=== PATIENT | male | born 1975 | race African-American/Black ===

== ENCOUNTER 2016-12-25 15:49 | Observation (INO) | payer OTHER ==
--- NOTE | 2016-12-25 16:10 | PDOC ---
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 Similar between 12:30 and 1 PM he had the sudden onset of palpitations, feeling like his ear is clogged, and feeling dizzy and lightheaded He went outside to walk around to get some air and then he states that it a little while his heart home down He went to the office, and his blood pressure was 135/99, and his heart rate is 80 at that point He continued to not quite feel right, But then one hour prior to presentation he developed some tingling in his left foot, and his face felt hot bilaterally He again went out and walked around and calm down He did not have palpitations at this time, and he did not have any chest pain or headache He was starting to feel better, but was told to come to the ER to get himself checked out He denies any other focal neurologic complaints He denies any difficulty walking He denies any syncope He denies any recent change in his Synthroid dose He denies any recent intercurrent illnesses He denies any other complaints at this time, and the remainder of the review of systems is negative NIH Stroke Scale - Initial Evaluation Level of consciousness: Alert Ask patient the month and their age: Answers both correctly Ask patient to open & close eyes; make fist and let go: Obeys both correctly Best gaze (horizontal eye movement): Normal Visual field testing: No visual field loss Facial paresis (Show teeth/raise eyebrows/close eyes tight): Normal symmetrical movement Motor Function: Left Arm: Normal Motor Function: Right Arm: Normal (extends arm 90 (or 45) degrees for 10 seconds without drift Motor Function: Left Leg: Normal (extends leg 30 degrees for 5 seconds without drift) Motor Function: Right Leg: Normal (extends leg 30 degrees for 5 seconds without drift) Limb Ataxia: No ataxia Sensory(Use pinprick test arms,legs,trunk,face/side to side): Normal Best language (Describe picture, name items, read sentences): No Aphasia Dysarthria (read several words): Normal articulation Extinction and Inattention: No abnormality - Total Score NIH Stroke Scale Score: 0 Past History - Past Medical History Allergies/Adverse Reactions: Allergies Allergy/AdvReac Type Severity Reaction Status Date / Time Shellfish Allergy hives/swell Verified 12/25/16 15:50 ing Home Medications: Ambulatory Orders Levothyroxine [Synthroid -] 112 mcg PO DAILY 06/25/14 Thyroid Disease: Yes - Immunization History Td Vaccination: Yes TDAP Vaccination: Yes Immunization Up to Date: Yes - Psycho/Social/Smoking Cessation Hx Anxiety: No Suicidal Ideation: No Smoking Status: No Smoking History: Unknown if ever smoked Have you smoked in the past 12 months: No Number of Cigarettes Smoked Daily: 0 Hx Alcohol Use: Yes Drug/Substance Use Hx: No Substance Use Type: None Review of Systems - Review of Systems Able to Perform ROS?: Yes Comments:: 12/25/16 16:13 12 point review of systems is as per history of present illness and otherwise negative *Physical Exam - Physical Exam Comments: 12/25/16 16:14 Physical exam Last Vital Signs Temp Pulse Resp BP Pulse Ox 98.1 F 78 20 142/88 100 12/25/16 15:50 12/25/16 15:50 12/25/16 15:50 12/25/16 15:50 12/25/16 15:50 GENERAL: The patient is awake, alert, and fully oriented, and in no apparent distress. HEAD: Normal with no signs of trauma. EYES: Pupils equal, round and reactive to light, extraocular movements intact, sclera anicteric, conjunctiva are normal. ENT: oropharynx clear without exudates. Moist mucous membranes. NECK: Normal range of motion, supple LUNGS: Breath sounds equal, clear to auscultation bilaterally. No wheezes, and no crackles. HEART: Regular rate and rhythm, normal S1 and S2 without murmur, rub or gallop. ABDOMEN: Soft, nontender, normoactive bowel sounds. No guarding, no rebound. No masses appreciated. EXTREMITIES: Normal range of motion, no edema. No clubbing or cyanosis. No cords, erythema, or tenderness. NEURO: Mental status: The patient is oriented x3. Cranial nerves: Cranial nerves II through XII are intact Motor: The upper extremities are 5 over 5 in all muscle groups. The lower extremities are 5 over 5 in all muscle groups. Sensation: Sensation is intact to light touch throughout. Cerebellar: Poqedd-dzxoch-aele is normal in both upper extremities. Heel-knee- acosta is normal in both lower extremities. Reflexes: 2+ and symmetric in the upper and lower extremities. Gait: Normal. Heel and toe walking are normal. Tandem gait is normal. NIH stroke scale 0 at this time NEUROLOGICAL: Cranial nerves II through XII grossly intact. Normal speech, normal gait. PSYCH: Normal mood, normal affect. SKIN: Warm, Dry, normal turgor, no rashes or lesions noted. ED Treatment Course - LABORATORY CBC & Chemistry Diagram: 12/25/16 16:12 12/25/16 16:12 - RADIOLOGY Radiology Studies Ordered: Category Date Time Status HEAD CT WITHOUT CONTRAST [CT] Stat CT Scan 12/25/16 16:01 Ordered CHEST X-RAY PORTABLE* [RAD] Stat Radiology 12/25/16 16:02 Ordered Medical Decision Making - Medical Decision Making 12/25/16 16:14 During triage, there was a question of a left facial droop I came into the room immediately when called by the nurse, and did a complete NIH stroke scale There is no facial droop at this time, and the NIH stroke scale is 0 I did speak to neurology at 4 PM-Dr. Richter-will get a CT scan of the head With a completely nonfocal neurologic examination NIH stroke scale of 0 at this time, patient is not a candidate Patient states that he's feeling back to himself right now EKG Normal sinus rhythm 71, normal axis Normal AV and IV conduction time Normal QTC Normal EKG 12/25/16 17:11 CT head without-NAD Chest x-ray-NAD Laboratory Results - last 24 hr 12/25/16 12/25/16 12/25/16 16:12 16:12 16:12 WBC 5.1 RBC 5.89 H Hgb 15.7 Hct 47.8 MCV 81.1 MCHC 33.0 RDW 14.5 Plt Count 226 MPV 9.4 Sodium 138 Potassium 4.5 Chloride 105 Carbon Dioxide 26 Anion Gap 7 L BUN 14 Creatinine 1.3 Creat Clearance w eGFR > 60 Random Glucose 85 Calcium 9.1 Magnesium 1.9 Total Bilirubin 0.7 AST 22 ALT 30 Alkaline Phosphatase 45 Creatine Kinase 270 H CK-MB (CK-2) CK-MB (CK-2) Rel Index 0.9 Troponin I < 0.03 L Total Protein 7.0 Albumin 4.0 12/25/16 16:15 WBC RBC Hgb Hct MCV MCHC RDW Plt Count MPV Sodium Potassium Chloride Carbon Dioxide Anion Gap BUN Creatinine Creat Clearance w eGFR Random Glucose Calcium Magnesium Total Bilirubin AST ALT Alkaline Phosphatase Creatine Kinase CK-MB (CK-2) 2.4 CK-MB (CK-2) Rel Index Troponin I Total Protein Albumin Repeat neurologic exam nonfocal 12/25/16 17:22 Case discussed with neurologist again-Dr. Richter Possible TIA, unclear if the palpitations represented atrial fibrillation which may have led to the TIA Patient remains in sinus rhythm, with an NIH stroke score of 0 at this time Will give 325 of aspirin 12/25/16 17:[address] Gregorio Gracia, discussed with Dr. Buddy Goowdin does not admit to [facility]-will admit hospitalist Impression-TIA resolved, palpitations 12/25/16 17:42 Case discussed with hospitalist-will admit Case discussed scan with Dr. Richter *DC/Admit/Observation/Transfer Diagnosis at time of Disposition: TIA (transient ischemic attack), Palpitations - Discharge Dispostion Admit: Yes
[2016-12-25 16:12] VITALS: BMI 38.9
[2016-12-25 16:38] LABS: MCH 26.7 pg (25.7-33.7); MEAN CELL VOLUME 81.1 fl (80-96); MEAN PLT VOLUME 9.4 fl (7.5-11.1); PLATELET COUNT 226 K/MM3 (134-434); RDW 14.5 % (11.9-15.9); WHITE BLOOD COUNT 5.1 K/mm3 (4.0-10.0)
[2016-12-25 16:47] LABS: CPK(DFH) 270 IU/L (38-174)
[2016-12-25 16:48] LABS: ALK PHOS 45 U/L (32-92); ANION GAP 7 (8-16); BILIRUBIN,TOTAL 0.7 mg/dl (0.2-1.0); CALCIUM 9.1 mg/dl (8.4-10.2); CO2 26 mmol/L (22-28); CREATININE 1.3 mg/dl (0.6-1.3); GLUCOSE,RANDOM 85 mg/dl (74-106); MAGNESIUM 1.9 mg/dL (1.8-2.4); SGOT/AST 22 U/L (10-42); SGPT/ALT 30 U/L (10-40)
[2016-12-25 17:08] LABS: TROPONIN I (DFP) < 0.03 ng/ml (0.03-0.50)
[2016-12-25] MEDS ORDERED: ASPIRIN 325 MG ENTERIC COATED TABLET (FP) PO ONE (17:22)
[2016-12-25] MEDS ORDERED: ASPIRIN 325 MG TABLET PO ONE (17:35)
[2016-12-25] MEDS ORDERED: ASPIRIN 81 MG CHEWABLE TABLETS ONE (17:37)
--- NOTE | 2016-12-25 21:39 | HP ---
Admitting History and Physical - Admission Chief Complaint: lightheadedness heart palps History of Present Illness: 41 yo male with hx of hypothyroidism who presents to the ER after having heart palps and lightheadedness today while at work. Patient reports eating lunch prior to onset of his symptoms. He states the heart palps and LH lasted ~10min. He states like he had 'tunnel vision". He states his symptoms abated after getting some fresh air. He reports it felt like a "panic attack and heart attack ". He reports associated sharp sensation in both feet which last less than a minute. He denies feeling like this in the past. He states he drank 7 shots of vodka and 3 beers last night. He endorses he his job is stressful. He denies chest pain, sob, LOC, speech trouble, double vision, fevers, chills, nausea, vomiting, diarrhea, dysuria, headache. He denies numbness, extremity weakness, dysphagia, ataxia. 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 Denies rec drugs, tobacco. 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 Mom- Hypothyroid dz PCP- Gregorio Gracia Ros neg except for HPI Physical General- in nad, alert Hent- AT/NC, vera, eomi, neck supple, trachea midline RESP- no cough, no ronchi, no rales, no wheeze, lungs ctab Cards- s1s2 heard, no jvd, no carotid bruits, extremity pulses +2, no leg edema , RRR SKin- no erythema, no rashes, no lesions MUsk- normal arom bue/ble Neuro- cn2-12 grossly intact, no ftn ataxia, romberg neg, no leg/arm drift, no facial droop, no seizures, no nystagmus, gait steady and intact, (DTRs +1 Patella, +2 Ankle, tricep/bicep +2), no dysdiochokinesia. Muscle strength 5/5 bue/ble Gi- soft non tender, no rebound, obese, no distention, no masses Prob list Lightheadedness Heart palps hypothyroidism A/P 41 yo male with hx of hypothyroidism who presents to the ER after having heart palps and lightheadedness today while at work placed in observation for evaluation of their emergent condition. 1. Lightheadedness, heart palpitations, ?TIA,? arrhythmia, ? Anxiety CTH negative EKG negative for tricia/std, normal intervals Non focal neuro exam 1st trop negative Cards, and neuro consulted Cardiac enzymes, telemetry TSH, Mag Echo, CUS, MRI brain Neuro checks 2. Hypothyroidism Check TSH Continue home meds FEN Regular diet DVT prophy OOB Dispo- Likely d/c in am History Source: Patient Limitations to Obtaining History: No Limitations - Smoking History Smoking history: Never smoked Have you smoked in the past 12 months: No Aproximately how many cigarettes per day: 0 - Alcohol/Substance Use Hx Alcohol Use: Yes Home Medications - Allergies Allergies/Adverse Reactions: Allergies Allergy/AdvReac Type Severity Reaction Status Date / Time Shellfish Allergy hives/swell Verified 12/25/16 15:50 ing - Home Medications Home Medications: Ambulatory Orders Levothyroxine [Synthroid -] 112 mcg PO DAILY 06/25/14 Physical Examination Vital Signs: Vital Signs Temperature 98.3 F 12/25/16 19:00 Pulse Rate 82 12/25/16 19:00 Respiratory Rate 20 12/25/16 20:53 Blood Pressure 136/73 12/25/16 19:00 O2 Sat by Pulse Oximetry (%) 95 12/25/16 20:53 Visit type - Emergency Visit Emergency Visit: Yes ED Registration Date: 12/25/16 Care time: The patient presented to the Emergency Department on the above date and was hospitalized for further evaluation of their emergent condition. - New Patient This patient is new to me today: Yes Date on this admission: 12/26/16 - Critical Care Critical Care patient: No
[2016-12-26 06:01] LABS: EOSINOPHIL 2.9 % (0-4.5); MCH 26.8 pg (25.7-33.7); MCHC 33.1 g/dl (32.0-35.9); MEAN CELL VOLUME 81.1 fl (80-96); MEAN PLT VOLUME 9.5 fl (7.5-11.1); NEUTROPHILS 40.1 % (42.8-82.8); PLATELET COUNT 199 K/MM3 (134-434); WHITE BLOOD COUNT 4.3 K/mm3 (4.0-10.0)
[2016-12-26 06:28] LABS: ALK PHOS 46 U/L (45-117)
[2016-12-26 06:36] LABS: ALBUMIN 3.3 g/dl (3.4-5.0); ANION GAP 8 (8-16); BILIRUBIN,TOTAL 0.6 mg/dL (0.2-1.0); CALCIUM 8.5 mg/dL (8.5-10.1); CO2 26 mmol/L (21-32); CREATININE 1.3 mg/dL (0.7-1.3); GLUCOSE,RANDOM 99 mg/dL (74-106); MAGNESIUM 2.1 mg/dL (1.8-2.4); SGOT/AST 16 U/L (15-37); SGPT/ALT 31 U/L (12-78); TOT PROT 6.2 g/dl (6.4-8.2)
[2016-12-26] MEDS ORDERED: LEVOTHYROXINE NA 112 MCG TABLET (FP) PO SCH (07:00)
--- NOTE | 2016-12-26 09:12 | CON.CARD ---
Consult Consult Specialty:: cardio Referred by:: hospitalist Reason for Consultation:: palpitations - History of Present Illness Chief Complaint: same History of Present Illness: 41 yo man here with palpitations. seated at work yest feeling absolutely fine, when suddenly felt heart racing. no skipping. lasted about 20 sec.s; assctd with "tunnel vision...like everything went quiet." denies any other neuro deficits and can't say if actually had vision deficit, he thinks not. all sx's resolved at same time after about 20 sec. it set off signif anxiety in him but he had no preceding anxiety/panic, no prior h/o panic attacks. drank a lot of etoh the night before. has chronically hi stress with long hours of work but no acute stressor of late. normal activity tolerance with no cp or sob on exertion h/o mild elev TGs; no DM no HTN hypothyroid no cigs no FH of CAD - Alcohol/Substance Use Hx Alcohol Use: Yes - Smoking History Smoking history: Never smoked Have you smoked in the past 12 months: No Aproximately how many cigarettes per day: 0 Home Medications - Allergies Allergies/Adverse Reactions: Allergies Allergy/AdvReac Type Severity Reaction Status Date / Time Shellfish Allergy hives/swell Verified 12/25/16 15:50 ing - Home Medications Home Medications: Ambulatory Orders Levothyroxine [Synthroid -] 112 mcg PO DAILY 06/25/14 Review of Systems - Review of Systems Constitutional: denies: Chills, Fever Eyes: denies: Eye Pain HENT: denies: Nasal Congestion Neck: denies: Stiffness Cardiovascular: denies: Edema Respiratory: denies: Orthopnea, PND Gastrointestinal: denies: Diarrhea, Rectal Bleeding Genitourinary: denies: Burning, Hematuria Musculoskeletal: denies: Muscle Pain Integumentary: denies: Rash Neurological: denies: Numbness, Seizure, Syncope Endocrine: denies: Excessive Sweating Hematology/Lymphatic: denies: Excessive Bleeding Vital Signs: Vital Signs Temperature 97.9 F 12/26/16 05:30 Pulse Rate 68 12/26/16 05:30 Respiratory Rate 20 12/26/16 05:30 Blood Pressure 127/76 12/26/16 05:30 O2 Sat by Pulse Oximetry (%) 98 12/26/16 05:22 Constitutional: Yes: No Distress, Calm, Obese Eyes: No: Sclera Icterus HENT: No: Nasal Congestion Neck: No: Decreased ROM Respiratory: Yes: CTA Bilaterally. No: Accessory Muscle Use Gastrointestinal: Yes: Normal Bowel Sounds. No: Distention, Hepatomegaly, Palpable Mass, Tenderness Cardiovascular: Yes: Regular Rate and Rhythm JVD: No Carotid Bruit: No PMI: Non-Displaced Heart Sounds: Yes: S1, S2. No: Gallop Murmur: No: Systolic Murmur, Diastolic Murmur Musculoskeletal: Yes: Other (No kyphosis) Extremities: No: Cool, Cyanosis Edema: No Peripheral Pulses: 2+ Left Carotid, 2+ Right Carotid, 2+ Left Doralis Pedis, 2+ Right Dorsalis Pedis Integumentary: No: Jaundice Neurological: Yes: Alert, Oriented (x3) Psychiatric: No: Agitated - Other Data Labs, Other Data: CBC, BMP 12/26/16 05:30 12/26/16 05:30 Troponin, BNP 12/25/16 12/26/16 23:10 05:30 Troponin I < 0.03 < 0.02 Troponin, BNP 12/25/16 12/26/16 23:10 05:30 Troponin I < 0.03 < 0.02 Laboratory Tests 12/25/16 12/25/16 12/26/16 16:12 23:10 05:30 WBC Hgb Plt Count Sodium Potassium Carbon Dioxide BUN Creatinine AST ALT Troponin I < 0.03 L < 0.03 < 0.02 TSH 12/26/16 12/26/16 05:30 05:30 WBC 4.3 Hgb 14.9 Plt Count 199 Sodium 143 Potassium 4.5 Carbon Dioxide 26 BUN 15 Creatinine 1.3 AST 16 ALT 31 Troponin I TSH 0.90 ekg 12/25: NSR, WNL tele: WNL Imaging - Results Chest X-ray: Report Reviewed (clear lungs/pleura) Cat Scan: Report Reviewed (no acute path) Assessment/Plan palpitations: -sx's description c/w either inappr sinus tach (? related to etoh intake the night before, ? relative intravasc vol depletion (he drank a soda 20 min prior) , vs brief PSVT -favor PSVT given assctd sx's suggestive of briefly mild low BP with the episode -never had this sx otherwise, none since--tele WNL -TSH normal -to have echo today to r/o structural heart dz -minimal pretest prob for CAD with normal ecg and enzymes--no indication for stress testing here -advised pt if sx's recur, he should f/u with cardio (will see yaima in his pmd's office)
[2016-12-26] MEDS ORDERED: ASPIRIN 81 MG CHEWABLE TABLETS PO SCH (10:00)
--- NOTE | 2016-12-26 12:05 | EKG ---
Test Reason : Blood Pressure : / mmHG Vent. Rate : 068 BPM Atrial Rate : 068 BPM P-R Int : 168 ms QRS Dur : 076 ms QT Int : 370 ms P-R-T Axes : 053 064 020 degrees QTc Int : 393 ms POOR DATA QUALITY, INTERPRETATION MAY BE ADVERSELY AFFECTED NORMAL SINUS RHYTHM NORMAL ECG NO PREVIOUS ECGS AVAILABLE Confirmed by GURJIT HOLLY MD ([id number]) on 12/26/2016 12:05:13 PM Referred By: KIMBERLY Confirmed By:GURJIT HOLLY MD
--- NOTE | 2016-12-26 12:30 | DS ---
Physical Exam: SUBJECTIVE: Patient seen and examined, patient reports feeling well and laboratory at bedside no lightheadedness no palpitations noted OBJECTIVE: patient is a 41-year-old male with hx of hypothyroidism who presents to the ER after having heart palps and lightheadedness today while at work. Patient reports eating lunch prior to onset of his symptoms. He states the heart palps and LH lasted ~10min. He states like he had 'tunnel vision". He states his symptoms abated after getting some fresh air. He reports it felt like a "panic attack and heart attack". He reports associated sharp sensation in both feet which last less than a minute. He denies feeling like this in the past. He states he drank 7 shots of vodka and 3 beers last night. He endorses he his job is stressful. He denies chest pain, sob, LOC, speech trouble, double vision, fevers, chills, nausea, vomiting, diarrhea, dysuria, headache. He denies numbness, extremity weakness, dysphagia, ataxia. Vital Signs Period Temp Pulse Resp BP Sys/Sánchez Pulse Ox Last 24 Hr 97.9 F-98.3 F 68-82 17-20 119-127/61-76 95-98 PHYSICAL EXAM GENERAL: The patient is awake, alert, and fully oriented, in no acute distress. HEAD: Normal with no signs of trauma. EYES: PERRL, extraocular movements intact, sclera anicteric, conjunctiva clear. ENT: Ears normal, nares patent, oropharynx clear without exudates, moist mucous membranes. NECK: Trachea midline, full range of motion, supple. LUNGS: Breath sounds equal, clear to auscultation bilaterally, no wheezes, no crackles, no accessory muscle use. HEART: Regular rate and rhythm, S1, S2 without murmur, rub or gallop. ABDOMEN: Soft,obese nontender, nondistended, normoactive bowel sounds, no guarding, no rebound, no hepatosplenomegaly, no masses. EXTREMITIES: 2+ pulses, warm, well-perfused, no edema. NEUROLOGICAL: Cranial nerves II through XII grossly intact. Normal speech, steady gait noted PSYCH: Normal mood, normal affect. SKIN: Warm, dry, normal turgor, no rashes or lesions noted. LABS Laboratory Results - last 24 hr 12/25/16 12/26/16 12/26/16 23:10 05:30 05:30 WBC 4.3 RBC 5.58 Hgb 14.9 Hct 45.2 MCV 81.1 MCHC 33.1 RDW 15.0 Plt Count 199 MPV 9.5 Neutrophils % 40.1 L Lymphocytes % 46.1 H Monocytes % 9.9 Eosinophils % 2.9 Basophils % 1.0 Sodium Potassium Chloride Carbon Dioxide Anion Gap BUN Creatinine Creat Clearance w eGFR Random Glucose Calcium Magnesium Total Bilirubin AST ALT Alkaline Phosphatase Troponin I < 0.03 < 0.02 Total Protein Albumin TSH 12/26/16 05:30 WBC RBC Hgb Hct MCV MCHC RDW Plt Count MPV Neutrophils % Lymphocytes % Monocytes % Eosinophils % Basophils % Sodium 143 Potassium 4.5 Chloride 109 H Carbon Dioxide 26 Anion Gap 8 BUN 15 Creatinine 1.3 Creat Clearance w eGFR > 60 Random Glucose 99 Calcium 8.5 Magnesium 2.1 Total Bilirubin 0.6 AST 16 ALT 31 Alkaline Phosphatase 46 Troponin I Total Protein 6.2 L Albumin 3.3 L TSH 0.90 HOSPITAL COURSE: patient was admitted from the emergency department for observation secondary to lightheadedness and palpitations. Patient was placed on 24 hour cardiac monitoring no arrhythmias was noted. CT of head was negative for any acute pathology. EKG WNL. Troponins 3 WNL. Echocardiogram EF 55-60%, LV WNL, trace tr, systolic and diastolic function is WNL. Carotid dopplers resulted as no hemodynamic significant stenosis. Cardiology and neurology were consulted. patient has a past medical history of hypothyroidism, TSH is WNL and synthroid was continued throughout hospitalization at patient's home dose. 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 You MUST call and follow up with your doctor tomorrow. Please make sure your doctor reviews the results of your hospital stay. Referrals: Kulwinder Staton MD [Staff Physician] - Arnulfo Whiteside MD [Staff Physician] - 2 Weeks Disposition: HOME - Home Medications Comprehensive Discharge Medication List: Ambulatory Orders Levothyroxine [Synthroid -] 112 mcg PO DAILY 06/25/14 This patient is new to me today: Yes Date on this admission: 12/26/16 Emergency Visit: Yes ED Registration Date: 12/25/16 Care time: The patient presented to the Emergency Department on the above date and was hospitalized for further evaluation of their emergent condition. Critical Care patient: No - Discharge Referral Referred to [facility] No
[2016-12-26 15:28] VITALS: BP 146/76; PULSE 88; TEMP 98.7
--- NOTE | 2016-12-26 15:36 | CONSULT ---
Consult - text type - Consultation Consultation Note: Neurology consult 41 year old male with pmh of Hypothyroidism and HPLD presented with complaint of palpitation, lightheadedness and vision changes that lasted 10mn and subsided after going out to get some fresh air. Pt describes it as feeling having a panic attack. His heart was racing, he felt like he was going to pass out. Pt came to the hospital because he was worried that the symptoms may recur. Pt admitted that he feels overwhelmed and stressed by his job. He feels overworked. The night before pt went out to drink and drink 8 shots of vodka, 3 beers. Pt said he had a late breakfast and the symptoms started 10 mn after eating. Pt denies numbness, tingling, slurred speech, chest pain, sob, n/v, headache, fever. CT head completed and did not show acute changes. MRI brain also done and did not show acute injuries. PMH: Hypothyroidism on Synthroid, Hyperlipidemia not on medication PSH: Left Clavicle Fracture Repair Social History : Drinks 5 times a week. Night before admission 8 shots of vodka and 3 beers Denies recreational drugs, Denies tobacco. 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 Uncle Stroke in 60s Mom- Hypothyroid dz PCP- Gregorio Gracia Active Medications Aspirin (Asa -) 81 mg PO DAILY [facility] Levothyroxine Sodium (Synthroid -) 112 mcg PO DAILY@0700 [facility] Last Admin: 12/26/16 06:48 Dose: 112 mcg REVIEW OF SYSTEM CONSTITUTIONAL: Absent: fever, chills, diaphoresis, generalized weakness, malaise, loss of appetite HEENT: Absent: rhinorrhea, nasal congestion, throat pain, throat swelling, difficulty swallowing, mouth swelling, ear pain, eye pain, visual Changes CARDIOVASCULAR: palpitations, lightheadedness Absent: chest pain, syncope, irregular heart rate, peripheral edema RESPIRATORY: Absent: cough, shortness of breath, dyspnea with exertion, orthopnea, wheezing, stridor, and hemoptysis GASTROINTESTINAL: Absent: abdominal pain, abdominal distension, nausea, vomiting, diarrhea, constipation, melena, hematochezia GENITOURINARY: Absent: dysuria, frequency, urgency, hesitancy, hematuria, flank pain, genital pain MUSCULOSKELETAL: Absent: myalgia, arthralgia, joint swelling SKIN: Absent: rash, itching, pallor HEMATOLOGIC/IMMUNOLOGIC: Absent: easy bleeding, easy bruising, lymphadenopathy, frequent infections ENDOCRINE: Absent: unexplained weight gain, unexplained weight loss, heat intolerance, cold intolerance NEUROLOGIC: dizziness Absent: headache, focal weakness or paresthesias, unsteady gait, seizure, mental status changes, bladder or bowel incontinence PSYCHIATRIC: : anxiety Absent: depression, suicidal or homicidal ideation, hallucinations. PHYSICAL EXAM GENERAL: Well developed, well nourished. Awake and alert. No acute distress. HEENT: Normocephalic, atraumatic. PERRLA, EOMI. No conjunctival pallor. Sclera are non- icteric. Moist mucous membranes. Oropharynx is clear. NECK: Supple. Full ROM. No JVD. Carotid pulses 2+ and symmetric, without bruits. No thyromegaly. No lymphadenopathy. CARDIOVASCULAR: Regular rate and rhythm. No murmurs, rubs, or gallops. Distal pulses are 2+ and symmetric. PULMONARY: No evidence of respiratory distress. Lungs clear to auscultation bilaterally. No wheezing, rales or rhonchi. ABDOMINAL: Soft. Non-tender. Non-distended. No rebound or guarding. No organomegaly. Normoactive bowel sounds. MUSCULOSKELETAL Normal range of motion at all joints. No bony deformities or tenderness. No CVA tenderness. EXTREMITIES: No cyanosis. No clubbing. No edema. No calf tenderness. SKIN: Warm and dry. Normal capillary refill. No rashes. No jaundice. NEUROLOGICAL: Alert, awake, appropriate. Normal speech. No facial asymmetry or droop. Cranial nerves 2-12 intact. No deficits to light touch and temperature in face, upper extremities and lower extremities. No motor deficits in the in face, upper extremities equal strength 5/5 and lower extremities equal strength 5/5 . Normoreflexic in the upper and lower extremities (Bicept reflex 2+ b/l , brachioradialis reflex 2+ b/l. patellar reflex 2+ b/l, normal plantar reflex, Toes are down-going bilaterally. Normal rhomberg test. Normal rapid alternating movement. Normal finger to nose. Gait is normal without ataxia. PSYCHIATRIC: Cooperative. Good eye contact. Appropriate mood and affect. Mildly anxious CBCD WBC 4.3 K/mm3 (4.0-10.0) 12/26/16 05:30 RBC 5.58 M/mm3 (4.00-5.60) 12/26/16 05:30 Hgb 14.9 GM/dL (11.7-16.9) 12/26/16 05:30 Hct 45.2 % (35.4-49) 12/26/16 05:30 MCV 81.1 fl (80-96) 12/26/16 05:30 MCHC 33.1 g/dl (32.0-35.9) 12/26/16 05:30 RDW 15.0 % (11.9-15.9) 12/26/16 05:30 Plt Count 199 K/MM3 (134-434) 12/26/16 05:30 MPV 9.5 fl (7.5-11.1) 12/26/16 05:30 CMP Sodium 143 mmol/L (136-145) 12/26/16 05:30 Potassium 4.5 mmol/L (3.5-5.1) 12/26/16 05:30 Chloride 109 mmol/L (98-107) H 12/26/16 05:30 Carbon Dioxide 26 mmol/L (21-32) 12/26/16 05:30 Anion Gap 8 (8-16) 12/26/16 05:30 BUN 15 mg/dL (7-18) 12/26/16 05:30 Creatinine 1.3 mg/dL (0.7-1.3) 12/26/16 05:30 Creat Clearance w eGFR > 60 (>60) 12/26/16 05:30 Calcium 8.5 mg/dL (8.5-10.1) 12/26/16 05:30 Total Bilirubin 0.6 mg/dL (0.2-1.0) 12/26/16 05:30 AST 16 U/L (15-37) 12/26/16 05:30 ALT 31 U/L (12-78) 12/26/16 05:30 Alkaline Phosphatase 46 U/L (45-117) 12/26/16 05:30 Total Protein 6.2 g/dl (6.4-8.2) L 12/26/16 05:30 Albumin 3.3 g/dl (3.4-5.0) L 12/26/16 05:30 Imaging MRI brain 12/26/16 No acute ischemic changes are seen on the diffusion-weighted images CT head 12/25/[address] evidence of acute intracranial pathology ASSESSMENT 41 year old male with pmh hypothyroidism on Synthroid, HPLD with transient palpitation and lightheadedness x1. Etiology for symptoms include but not limited to Cardiac arrhythmia but pt has normal ekg and no recurrence, no cardiovascular ekg, normal echocardiogram TIA was considered but pt had no focal neurological deficit, no slurred speech, facial asymmetry, blurred or double vision, no numbness or tingling NV/ACS was considered but pt has normal ekg, normal troponins x3. Symptoms resolved spontaneously. No chest pain, sob Electrolytes imbalance and dehydration from alcohol use was considered but CMP was normal with Mg 1.9, Ca 9.1, Na 138, K 4.5 on adm. Dehydration is still a possibility along with panic/anxiety symptoms US carotid Hgba1c monitoring as outpatient Avoid smoking Reduce alcohol intake recommended Better Compliance with Synthroid which pt admitted to miss doses sometimes Outpatient neurology follow up in 2 weeks No further neurological work up, may discharge from the neurological standpoint if US carotid negative. Thank You for the opportunity to consult on this patient.
== END 2016-12-26 17:30 | disposition home or self-care (01) ==
LOC: FER 15:49 → FM/S 19:00
PROVIDERS: ADMIT Internal Medicine; ATTEND Nurse Practitioner Family
DX: R00.2 Palpitations (principal); E03.9 Hypothyroidism, unspecified; E87.8 Other disorders of electrolyte and fluid balance, not elsewhere classified; E86.0 Dehydration; F41.0 Panic disorder [episodic paroxysmal anxiety]
CPT/HCPCS: 36415; 70450-TC; 70551-TC; 71010-TC; 80053; 82550; 82553; 83735; 84443; 84484; 85025; 85027; 93005; 93306-TC; 93880-TC; 99285-25; G0378

== ENCOUNTER 2017-07-23 10:53 | Emergency (ER) | payer OTHER ==
[2017-07-23 11:14] VITALS: BP 128/87; PULSE 70; TEMP 98.2; BMI 40.3
[2017-07-23] MEDS ORDERED: diphenhydrAMINE HCL 25 MG CAPSULE (FP) PO ONE ×2 (11:30→11:34)
--- NOTE | 2017-07-23 11:36 | PDOC ---
History of Present Illness - General Chief Complaint: Rash Stated Complaint: RASH Time Seen by Provider: 07/23/17 11:07 History Source: Patient Exam Limitations: No Limitations - History of Present Illness Initial Comments: 07/23/17 11:31 42y M hx of hypothyroidism presents with complaint of rash. The pt notes the rash is generalized, started off last night as some itching on his elbow and a couple of red spots. This mroning he noticed it was more itchy and saw the spots everywhere on his body. The pt denies any fever/chlls, pain, headache, joint pain, n/v, cough/uri, recent travel. No sick contacts. his and son do not have any rashes. Past History - Past Medical History Allergies/Adverse Reactions: Allergies Allergy/AdvReac Type Severity Reaction Status Date / Time Shellfish Allergy hives/swell Verified 12/25/16 15:50 ing Home Medications: Ambulatory Orders Levothyroxine [Synthroid -] 112 mcg PO DAILY 06/25/14 Aspirin [ASA -] 243 mg PO DAILY 07/23/17 Anemia: No Asthma: No Cancer: No Cardiac Disorders: No CVA: No COPD: No CHF: No Dementia: No Diabetes: No GI Disorders: No Disorders: No HTN: No Hypercholesterolemia: No Liver Disease: No Seizures: No Thyroid Disease: Yes - Immunization History Td Vaccination: Yes TDAP Vaccination: Yes Immunization Up to Date: Yes - Psycho/Social/Smoking Cessation Hx Anxiety: No Suicidal Ideation: No Smoking Status: No Smoking History: Never smoked Have you smoked in the past 12 months: No Number of Cigarettes Smoked Daily: 0 Hx Alcohol Use: Yes (DRANK HEAVILY YESTERDAY) Drug/Substance Use Hx: No Substance Use Type: None Hx Substance Use Treatment: No Review of Systems - Review of Systems Able to Perform ROS?: Yes Comments:: 07/23/17 11:32 Constitutional - no reported Fever, Chills, HEENT: no reported vision changes, sore throat Respiratory: no reported cough, sob, hemoptysis Cardiac: no reported chest pain, palpitations, light headedness, leg swelling Abd/GI: no reported abd pain, nausea, vomiting, blood per rectum, melena, diarrhea : no reported dysuria, frequency, discharge Musculskelatal - no reported back pain, joint swelling skin - +rash no reported bruising, erythema, neurological: no reported headache, numbness, focal weakness, tingling, ataxia, hematologic: no reported anemia, easy bruising, easy bleeding *Physical Exam - Vital Signs Last Vital Signs Temp Pulse Resp BP Pulse Ox 98.2 F 70 16 128/87 99 07/23/17 10:58 07/23/17 10:58 07/23/17 10:58 07/23/17 10:58 07/23/17 10:58 - Physical Exam Comments: 07/23/17 11:32 GENERAL: The patient is awake, alert, and fully oriented, Nontoxic - in no acute distress. HEAD: Normocephalic, atraumatic. EYES: extraocular movements intact, sclera anicteric, conjunctiva clear. ENT: Normal voice, Moist mucous membranes. NECK: Normal range of motion, supple LUNGS: Breath sounds equal, clear to auscultation bilaterally. No wheezes, no rhonchi, no rales. HEART: Regular rate and rhythm, normal S1 and S2 without murmur, rub or gallop. ABDOMEN: Soft, nontender, normoactive bowel sounds. No guarding, no rebound. . No CVA tenderness EXTREMITIES: Normal range of motion, no edema. No clubbing or cyanosis. No cords, erythema, or tenderness. NEUROLOGICAL: No facial assymetry, Normal speech, PSYCH: Normal mood, normal affect. SKIN: Multiple macular blanching rash that are round approx 2-3mm on his body ( arms/torso/legs), non indurated, not warm,no signs of pustules/blistering, spares palms. Medical Decision Making - Medical Decision Making 07/23/17 11:34 nonspecific eruption possibly viral inconsistent with urticaria no fever/chills, recent travel, no mucusal or palmar involvement will treat sypmtomatically with benadryl will have pt fu with his pmd return precautions were discussed I discussed the physical exam findings, ancillary test results and final diagnoses with the patient. I answered all of the patient's questions. The patient was satisfied with the care received and felt comfortable with the discharge plan and treatment plan. The patient will call their primary care physician within 24 hours to arrange follow-up and will return to the Emergency Department with any new, persistent or worsening symptoms. *DC/Admit/Observation/Transfer Diagnosis at time of Disposition: Rash and nonspecific skin eruption - Discharge Dispostion Disposition: HOME Condition at time of disposition: Stable Admit: No - Referrals Referrals: Gregorio Gracia MD [Primary Care Provider] - - Patient Instructions Printed Discharge Instructions: DI for Rash Additional Instructions: Return to the emergency department immediately with ANY new, persistent or worsening symptoms. Take Benadryl as needed for any itching. Keep an eye on the rash if it becomes very painful you develop any fevers, chills, severe headache or any other concerns come back to the ER or see your primary care doctor. You MUST call and follow up with Dr. Gracia in a few days for further evaluation of your symptoms. Results were discussed with you. Please make sure your doctor reviews the results of your emergency evaluation. Print Language: TRINIDADIAN
== END 2017-07-23 11:42 | disposition home or self-care (01) ==
LOC: FER 10:53
DX: R21 Rash and other nonspecific skin eruption (principal); E03.9 Hypothyroidism, unspecified; Z91.013 Allergy to seafood
CPT/HCPCS: 99281-25

== ENCOUNTER 2018-12-09 15:43 | Emergency (ER) | payer OTHER ==
--- NOTE | 2018-12-09 15:46 | PDOC ---
History of Present Illness - General Chief Complaint: Nausea/Vomiting Stated Complaint: VOMITING Time Seen by Provider: 12/09/18 15:46 History Source: Patient Exam Limitations: No Limitations - History of Present Illness Initial Comments: 12/09/18 15:47 43YOM with h/o hypothyroidism and HLD, who p/w 15 episodes NBNB vomiting, 6 episodes non-black/non-bloody diarrhea, and abdominal discomfort today. States he was awakened this morning by upset stomach, which soon progressed to the vomiting and diarrhea. He expresses concern that he ate a chicken sandwich and mozzarella sticks last night at 7 pm and wonders if this might have something to do with the symptoms. He did not get an influenza vaccination this year. No known sick contacts, no recent antibiotics or travel. He lives with his and 5 yo son. Denies any regular contact with very young children or very old persons. Has associated hot flashes and chills, head-to-toe body aches. Has not measured his temperature at home. Past History - Past Medical History Allergies/Adverse Reactions: Allergies Allergy/AdvReac Type Severity Reaction Status Date / Time Shellfish Allergy hives/swell Verified 12/09/18 15:51 ing Home Medications: Ambulatory Orders Levothyroxine [Synthroid -] 112 mcg PO DAILY 06/25/14 Topiramate [Topamax] 50 mg PO BID 12/09/18 Anemia: No Asthma: No Cancer: No Cardiac Disorders: No CVA: No COPD: No CHF: No Dementia: No Diabetes: No GI Disorders: No Disorders: No HTN: No Hypercholesterolemia: No Liver Disease: No Seizures: No Thyroid Disease: Yes - Immunization History Td Vaccination: Yes TDAP Vaccination: Yes Immunization Up to Date: Yes - Suicide/Smoking/Psychosocial Hx Smoking Status: No Smoking History: Never smoked Have you smoked in the past 12 months: No Number of Cigarettes Smoked Daily: 0 Hx Alcohol Use: Yes (DRANK HEAVILY YESTERDAY) Drug/Substance Use Hx: No Substance Use Type: None Hx Substance Use Treatment: No Review of Systems - Review of Systems Able to Perform ROS?: Yes Comments:: 12/09/18 15:59 GEN: chills, malaise, myalgias, subjective fever, generalized weakness, no weight change HEENT: no ear pain, sore throat, vision change, or eye pain CV: no chest pain, palpitations, lightheadedness, syncope, or edema RESP: no cough, wheezing, or SOB GI: abdominal pain, nausea, vomiting, diarrhea, no constipation, or white/black/ bloody stool : no dysuria, hematuria, incontinence, retention, bleeding, or discharge MSK: no neck/back pain, muscle weakness/pain, or joint swelling/pain NEURO: mild headache, no seizure, vertigo, numbness, tingling, or focal weakness PSYCH: no substance use, no behavior change SKIN: no jaundice, no rash ROS otherwise negative except as noted in HPI *Physical Exam - Vital Signs 12/09/18 16:00 Initial Vital Signs Temp Pulse Resp BP Pulse Ox 98.3 F 100 H 18 135/85 98 12/09/18 15:45 12/09/18 15:45 12/09/18 15:45 12/09/18 15:45 12/09/18 15:45 - Physical Exam Comments: 12/09/18 16:00 GENERAL: nontoxic but tired and uncomfortable appearing, mild distress, A/Ox4, answers questions appropriately HEENT: PERRLA, EOMI, moist mucous membranes NECK/BACK: no midline ttp, no spinal stepoff or deformity, no hematoma, full ROM , neck supple CARDIOVASCULAR: regular rate/rhythm, normal S1S2, no MGR, no audible mediastinal crepitus, strong peripheral pulses, capillary refill <2 seconds, extremities wwp, no edema LUNGS/RESPIRATORY: no respiratory distress, CTAB GI/ABDOMEN: symmetric [id number], normoactive BS, soft, no ttp, no midline pulsatile masses : no CVA tenderness EXTREMITIES: no muscle atrophy, no acute deformity SKIN: warm and dry, no pallor, no jaundice, no rash, no bruising, no skin breakdown, no cuts, no lesions NEUROLOGICAL: GCS 15, CN II-XII grossly intact, 5/5 strength proximally and distally, no facial droop Medical Decision Making - Medical Decision Making 12/09/18 16:01 Adult patient p/w chills, nausea, vomiting, generalized abdominal pain, body aches. Initial Vital Signs Temp Pulse Resp BP Pulse Ox 98.3 F 100 H 18 135/85 98 12/09/18 15:45 12/09/18 15:45 12/09/18 15:45 12/09/18 15:45 12/09/18 15:45 Exam: As noted in Physical Exam section. DDX IBNLT: most likely influenza, norovirus, or other viral syndrome. Much less likely bacterial gastroenteritis, parasitic gastroenteritis, colitis, diverticulitis, SBO, appendicitis, or other more serious pathology. Given the fact that he has vomited many times, a point was made to check carefully for mediastinal/chest wall/neck crepitus (there is none) and the patient adamantly denies any pain, so there is little c/f esophageal rupture. W/U ordered: influenza swab TX ordered: Tylenol Reassessment: Patient states feeling much better, feels tired and wants to go home and sleep. This patient has gotten significant relief of symptoms while in the ED. He would not want to take Tamiflu if flu + after discussion of risks/benefits. On last reassessment, vitals are wnl, pain is reasonably controlled, and exam is benign. Workup is not concerning for emergency-level pathology at this time. This patient is appropriate for discharge with close outpatient follow up. They are comfortable with this plan and will follow up with their primary care provider in 1-3 days. Specific return precautions are discussed and they will come back to the ER if necessary. *DC/Admit/Observation/Transfer Diagnosis at time of Disposition: Vomiting Qualifiers: Vomiting type: unspecified Vomiting Intractability: non-intractable Nausea presence: with nausea Qualified Code(s): R11.2 - Nausea with vomiting, unspecified Diarrhea Qualifiers: Diarrhea type: unspecified type Qualified Code(s): R19.7 - Diarrhea, unspecified - Discharge Dispostion Disposition: HOME Condition at time of disposition: Stable Decision to Admit order: No - Referrals Referrals: Gregorio Gracia MD [Primary Care Provider] - - Patient Instructions Printed Discharge Instructions: DI for Diarrhea and Traveler's Diarrhea -- Adult, DI for Vomiting -- Adult Additional Instructions: You were seen in the ER for vomiting and diarrhea. We tested you for the flu and will call you with the results within the next few hours. After our assessment, we do not believe there is a medical emergency at this time, and we believe it is safe to go home. Please continue to take the Tylenol 1000 mg as needed for fever and discomfort, up to 4 times a day. Also continue the Motrin 600 mg as needed for fever and discomfort, up to 4 times a day. Please follow up with your regular doctor in 1-3 days. Call their clinic as soon as possible, tell them you were seen in the ER, and tell them you need an appointment. If there are any new or worsening symptoms, especially rash, difficulty breathing, chest pain, fainting, vomiting blood, bloody diarrhea, or other symptoms, please come back to the ER at any time (24 hours a day). If the symptoms appear severe or life-threatening, please call 911 to have an ambulance take you to the ER. We are still waiting on the results of your influenza test, but we feel comfortable sending you home and calling you with the results. We are giving you a work note for the day off tomorrow (return to work on Monday) in case you need it. See your regular doctor on Monday. YOU SHOULD TRY THE FOLLOWING salt water gargles and warm lemon tea is appropriate as well. that should soothe your throat minimize spread of infection given contagious nature, and cover your mouth and wash your hands adequately with soap and water. Stay well hydrated and rest. Stay away from young children, elderly and immunocompromised, sick people Return precautions include respiratory distress, difficulty breathing, chest pain, lethargy, confusion, dehydration, high fevers or pain. - Post Discharge Activity
[2018-12-09 15:55] VITALS: BP 135/85; PULSE 100; TEMP 98.3; BMI 40.3
[2018-12-09] MEDS ORDERED: ACETAMINOPHEN 500 MG TABLET (FP) PO ONE (15:56)
[2018-12-09] MEDS ORDERED: ACETAMINOPHEN 500 MG TABLET (FP) ONE (15:57)
[2018-12-09] MEDS ORDERED: ONDANSETRON *ODT* 4 MG TABLET SL ONE (15:58)
[2018-12-09] MEDS ORDERED: ONDANSETRON *ODT* 4 MG TABLET ONE (15:58)
--- NOTE | 2018-12-09 16:04 | PDOC ---
Attending Attestation - Resident Resident Name: NaikSheba - ED Attending Attestation I have performed the following: I have examined & evaluated the patient, The case was reviewed & discussed with the resident, I agree w/resident's findings & plan - HPI HPI: 12/09/18 16:03 43 YOM w/history of hypothyroidism presenting with nausea and vomiting and diarrhea since this morning 5AM. a/w mild headache, generalized body aches, abdominal pain and malaise, subjective chills/fever.. reported eating chicken sandwich and mozzerella sticks last night 7PM. no sick contacts or travel. 12/09/18 16:44 - Physicial Exam PE: 12/09/18 16:25 NAD, well appearing, PERRL, EOMI, MMM, nl conjunctiva, anicteric; neck supple. lungs clear, RRR, abdomen soft nontender. PATEL x4, no focal neuro deficits. No peripheral edema. normal color for ethnicity, WWP. - Medical Decision Making 12/09/18 16:25 hpi as documented, VS wnl, mild tachy 100. no fever abdomen soft and nontender, feels much better given tylenol for analgesia. zofran for nausea, GI cocktail PO, PO challenged, tolerated. flu_neg most likely food poisoning vs gastritis vs viral syndrome/early gastroenteritis. supportive care, bland diet, hydration, should self resolve <24 hours PCP followup return precautions discussed. 12/09/18 16:26 12/09/18 16:43 12/09/18 17:37
[2018-12-09] MEDS ORDERED: RANITIDINE HCL 150 MG TABLET (FP) PO ONE (16:43)
[2018-12-09] MEDS ORDERED: MAG HYDROX/AL HYDROX/SIMETH 30 ML UNIT-DOSE CUP PO ONE (16:43)
[2018-12-09] MEDS ORDERED: RANITIDINE HCL 150 MG TABLET (FP) ONE (17:06)
[2018-12-09] MEDS ORDERED: MAG HYDROX/AL HYDROX/SIMETH 30 ML UNIT-DOSE CUP ONE (17:07)
== END 2018-12-09 17:56 | disposition home or self-care (01) ==
LOC: FER 15:43
DX: R11.2 Nausea with vomiting, unspecified (principal); R19.7 Diarrhea, unspecified; E07.9 Disorder of thyroid, unspecified; E78.5 Hyperlipidemia, unspecified
CPT/HCPCS: 87804; 99282-25; Q0162

== ENCOUNTER 2020-07-13 19:09 | Emergency (ER) | payer OTHER ==
[2020-07-13 19:13] VITALS: BP 125/87; PULSE 65; TEMP 98; BMI 37.1
[2020-07-13] MEDS ORDERED: SODIUM CHLORIDE 0.9% 1000 ML INFUS.BAG IV ONE (19:36)
[2020-07-13] MEDS ORDERED: METOCLOPRAMIDE HCL INJECTION 10 MG/2 ML VIAL IVPUSH ONE (19:36)
[2020-07-13] MEDS ORDERED: KETOROLAC TROMETHAMINE 30 MG/1 ML VIAL IVPUSH ONE (19:36)
[2020-07-13] MEDS ORDERED: ACETAMINOPHEN 1000 MG/100 ML VIAL (NON FORMULARY) IVPB ONE (19:37)
[2020-07-13] MEDS ORDERED: KETOROLAC TROMETHAMINE 30 MG/1 ML VIAL ONE (19:55)
[2020-07-13] MEDS ORDERED: ACETAMINOPHEN INJECTION 100 ML IVPB ONE (19:56)
[2020-07-13] MEDS ORDERED: METOCLOPRAMIDE HCL INJECTION 10 MG/2 ML VIAL ONE (19:56)
[2020-07-13 20:14] LABS: BASO % 2.3 % (0-2.0); EOS % 3.5 % (0-4.5); HEMATOCRIT 47.5 % (35.4-49); HEMOGLOBIN 15.3 GM/dl (11.7-16.9); LYMPH % 43.2 % (8-40); MCH 27.8 pg (25.7-33.7); MCHC 32.3 g/dl (32.0-35.9); MEAN CELL VOLUME 86.1 fl (80-96); MEAN PLT VOLUME 9.8 fl (7.5-11.1); MONO % 8.5 % (3.8-10.2); NEUT % 42.5 % (42.8-82.8); PLATELET COUNT 212 K/MM3 (134-434); RBC 5.51 M/mm3 (4.00-5.60); RDW 14.1 % (11.9-15.9); WHITE BLOOD COUNT 5.4 K/mm3 (4.0-10.8)
[2020-07-13 20:22] LABS: ALBUMIN 4.1 g/dl (3.4-5.0); BILIRUBIN,TOTAL 0.5 mg/dl (0.2-1); CALCIUM 9.5 mg/dl (8.5-10); CREATININE 1.3 mg/dl (0.55-1.3); POTASSIUM 4.3 mmol/L (3.5-5.1); TOT PROT 7.3 g/dl (6.4-8.2)
--- NOTE | 2020-07-13 20:51 | PDOC ---
Documentation entered by Josh Rushing SCRIBE, acting as scribe for Loli Javier MD. Loli Javier MD: This documentation has been prepared by the scribe, Josh Rushing SCRIBE, under my direction and personally reviewed by me in its entirety. I confirm that the documentation accurately reflects all work, treatment, procedures, and medical decision making performed by me. History of Present Illness - General Chief Complaint: Pain Stated Complaint: GARAY, ABD PAIN Time Seen by Provider: 07/13/20 19:34 History Source: Patient Exam Limitations: No Limitations - History of Present Illness Initial Comments: 07/13/20 19:48 45 yo M h/o hypothyroidism and migraines who presents to the emergency department for evaluation of a headache that began two days ago. he correlates symptoms with bad chicken he ate 48 hours ago, followed by several epsiodes of nonbloody nonbilious emesis, 20 episodes of diarrhea, stomachache, stomach cramping, sweats, and chills that began shortly after. since then vomiting and diarreha has resolved. The patient presented to Urgent Care yesterday where he was advised to drink pedialyte and gatorade . he took topamax for his headache since then. He currently notes resolution of diarrhea and vomiting but continued headache and dry mouth for the past two days. no fever no chills. no sick contacts. no travel. The patient denies chest/abdominal/back pain, cough, and shortness of breath. Denies any other symptoms. Allergies: shellfish PCP: Dr. Gregorio Gracia 07/13/20 20:45 Past History - Medical History Allergies/Adverse Reactions: Allergies Allergy/AdvReac Type Severity Reaction Status Date / Time Shellfish Allergy hives/swell Verified 07/13/20 19:10 ing Home Medications: Ambulatory Orders Levothyroxine [Synthroid -] 112 mcg PO DAILY 06/25/14 Topiramate [Topamax] 50 mg PO BID 12/09/18 Anemia: No Asthma: No Cancer: No Cardiac Disorders: No CVA: No COPD: No CHF: No Dementia: No Diabetes: No GI Disorders: No Disorders: No HTN: No Hypercholesterolemia: No Liver Disease: No Seizures: No Thyroid Disease: Yes Other medical history: migraine headache - Immunization History Td Vaccination: Yes TDAP Vaccination: Yes Immunization Up to Date: Yes - Psycho-Social/Smoking History Smoking Status: No Smoking History: Never smoked Have you smoked in the past 12 months: No Number of Cigarettes Smoked Daily: 0 Information on smoking cessation initiated: No - Substance Abuse Hx (Audit-C & DAST Scrn) How often the patient has a drink containing alcohol: Monthly or less Score: In Men: 4 or > Positive; In Women: 3 or > Positive: 1 Screen Result (Pos requires Nsg. Audit-10AR): Negative In the last yr the pt used illegal drug/Rx for NonMed reason: No Score: Yes response is considered Positive: 0 Screen Result (Positive result requires Nsg. DAST-10): Negative Review of Systems - Review of Systems Able to Perform ROS?: Yes Comments:: 07/13/20 20:11 GENERAL/CONSTITUTIONAL: No fever or chills. No weakness. HEAD, EYES, EARS, NOSE AND THROAT: +headache, dry mouth. No change in vision. No ear pain or discharge. No sore throat. CARDIOVASCULAR: No chest pain or shortness of breath. RESPIRATORY: No cough, wheezing, or hemoptysis. GASTROINTESTINAL: No nausea, vomiting, diarrhea or constipation. GENITOURINARY: No dysuria, frequency, or change in urination. MUSCULOSKELETAL: No joint or muscle swelling or pain. No neck or back pain. SKIN: No rash NEUROLOGIC: No headache, vertigo, loss of consciousness, or change in strength/sensation. ENDOCRINE: No increased thirst. No abnormal weight change. HEMATOLOGIC/LYMPHATIC: No anemia, easy bleeding, or history of blood clots. ALLERGIC/IMMUNOLOGIC: No hives or skin allergy. All Other Systems: Reviewed and Negative *Physical Exam - Vital Signs Last Vital Signs Temp Pulse Resp BP Pulse Ox 98 F 65 18 125/87 99 07/13/20 19:09 07/13/20 19:09 07/13/20 19:09 07/13/20 19:09 07/13/20 19:09 - Physical Exam 07/13/20 20:48 Awake alert no acute distress lungs are clear bilaterally heart is regular murmurs rubs or gallops abdomen is soft and nontender obese extremities are warm well perfused skin is warm and dry no rash neurologic patient is A &O x3 ED Treatment Course - LABORATORY CBC & Chemistry Diagram: 07/13/20 19:55 07/13/20 19:55 Medical Decision Making - Medical Decision Making 07/13/20 20:50 45-year-old male history of hypothyroid and migraines here with a headache following a GI illness he attributes to bad food starting 48 hours ago which has resolved. He has had persistent headaches feels similar to his previous migraines no fever no chills no sick contacts no travel On my exam patient's abdominal exam is benign neurologically is fully intact differential includes electrolyte abnormality dehydration migraine plan CBC CMP IV hydration Reglan Tylenol and Toradol given for his headache will reassess likely discharge to home 07/13/20 21:41 Patient labs unremarkable feeling much improved following fluids and medication will discharge to home given follow-up with neurology as needed told to return for any persistent vomiting fevers or any concerns Discharge - Discharge Information Problems reviewed: Yes Clinical Impression/Diagnosis: Dehydration, Migraine headache Condition: Stable Disposition: HOME - Admission No - Follow up/Referral Referrals: Gregorio Gracia MD [Primary Care Provider] - Kirk Caballero MD [Staff Physician] - - Patient Discharge Instructions Patient Printed Discharge Instructions: Migraine -- Adult Additional Instructions: Your labs are unremarkable please return for any fevers persistent vomiting or worsening symptoms. Continue to hydrate with electrolyte solution such as Pedialyte or Gatorade you can take Motrin 800 mg every 8 hours as needed for your pain should he have persistent headaches he should follow-up with a neuro logist please see referral for Dr. Alvarado call to schedule as needed within 1 to 2 weeks - Post Discharge Activity
== END 2020-07-13 21:45 | disposition home or self-care (01) ==
LOC: FER 19:09
PROC: 3E0333Z Introduction of Anti-inflammatory into Peripheral Vein, Percutaneous Approach (ICD-10-PCS; principal; 2020-07-13)
PROC: 3E033GC Introduction of Other Therapeutic Substance into Peripheral Vein, Percutaneous Approach (ICD-10-PCS; 2020-07-13)
DX: E86.0 Dehydration (principal); G43.909 Migraine, unspecified, not intractable, without status migrainosus
CPT/HCPCS: 36415; 80053; 85025; 99284-25; J0131

== ENCOUNTER 2020-11-13 12:35 | Emergency (ER) | payer OTHER ==
[2020-11-13 12:52] VITALS: BP 0/0
[2020-11-13 13:05] VITALS: BMI 43.0
== END 2020-11-13 14:45 | disposition expired ==
LOC: JER 12:35
DX: I46.9 Cardiac arrest, cause unspecified (principal)
CPT/HCPCS: 82962; 99291